=== PATIENT | male | born 1990 | race Caucasian/White ===

== ENCOUNTER 2018-06-01 12:47 | Emergency (ER) | payer OTHER | END 2018-06-01 15:38 | disposition home or self-care (01) | LOC: FTE 12:47 | DX: Z48.01 Encounter for change or removal of surgical wound dressing (principal) | CPT/HCPCS: 99281 ==

== ENCOUNTER 2018-08-20 16:58 | Emergency (ER) | payer OTHER ==
[2018-08-20] MEDS: IBUPROFEN 600 MG TAB PO (17:35)
== END 2018-08-20 18:04 | disposition home or self-care (01) ==
LOC: FTE 16:58
DX: L03.011 Cellulitis of right finger (principal)
CPT/HCPCS: 10060; 99283-25

== ENCOUNTER 2018-11-18 21:53 | Emergency (ER) | payer OTHER | END 2018-11-18 22:26 | disposition home or self-care (01) | LOC: FTE 21:53 | DX: L02.31 Cutaneous abscess of buttock (principal) | CPT/HCPCS: 99283; Z7502 ==